=== PATIENT | female | born 2000 | race Two or more races ===

== ENCOUNTER 2023-12-26 10:16 | Day surgery (SDC) | payer MEDICAID ==
[2023-12-24 10:50] LABS: Basophils # (auto) 0.1 10 ^3/uL (0-0.2); Eosinophils # (auto) 0.3 10 ^3/uL (0-0.8); Hemoglobin 10.6 g/dL (12.2-16.2); Mean Corpuscular Hgb Conc. 31.1 g/dL (32.0-36.0); Monocytes # (auto) 0.6 10 ^3/uL (0-1.3); Red Cell Distribution Width 16.6 % (11.8-14.3)
[2023-12-24 10:53] LABS: Basophils % (auto) 0.7 % (0.0-2.0); Eosinophils % (auto) 3.6 % (0.0-7.0); Hematocrit 34.1 % (36.0-46.0); Lymphocytes # (auto) 2.7 10 ^3/uL (0.4-5.4); Lymphocytes % (auto) 29.5 % (10.0-50.0); Mean Corpuscular Hemoglobin 23.6 pg (28.0-32.0); Mean Corpuscular Volume 75.9 fL (80.0-100.0); Neutrophils # (auto) 5.3 10 ^3/uL (1.6-8.6); Neutrophils % (auto) 59.2 % (37.0-80.0); Nucleated Red Blood Cells % 0.1 %; Red Blood Cells 4.49 10^6/uL (4.0-5.20)
[2023-12-24 11:04] LABS: Urine Bacteria NONE SEEN /hpf (None Seen); Urine Blood Negative /uL (Negative); Urine Clarity Clear (Clear); Urine Color Colorless (Yellow); Urine Protein, UAD Negative (Negative); Urine Specific Gravity 1.005 (1.001-1.035); Urine Urobilinogen Normal (Negative); Urine WBC 2 /hpf (0 - 5)
[2023-12-24 11:06] LABS: INR 1.05 (0.9-1.15); Partial Thromboplastin Time 27.6 SEC (24.5-34.5)
[2023-12-24 11:35] LABS: Alanine Aminotransferase 12 U/L (7-40); Alkaline Phosphatase 85 U/L (46-116); Anion Gap 4 (5-15); BUN/Creatinine Ratio 10.3 (10.0-20.0); Blood Urea Nitrogen 6 mg/dL (9-23); Calcium 9.2 mg/dL (8.5-10.1); Carbon Dioxide 26 mmol/L (20-30); Chloride 107 mmol/L (98-107); Glucose 86 mg/dL (74-106); Potassium 3.7 mmol/L (3.5-5.1); Sodium 137 mmol/L (136-145)
[2023-12-24 11:36] LABS: Albumin 4.3 g/dL (3.2-4.8); Aspartate Aminotransferase 11 U/L (13-40); Bilirubin, Total 0.5 mg/dL (0.2-1.0)
[~2023-12-26] VITALS: Ht 167.6 cm; Wt 128.8 kg
[2023-12-26] MEDS ORDERED: LIDOCAINE VISCOUS 2% 15ML UD ONE (10:34)
[2023-12-26] MEDS ORDERED: ONDANSETRON HCL 4 MG/2 ML VIAL ONE (10:47)
[2023-12-26] MEDS ORDERED: SODIUM CHLORIDE LOCK 10 ML ONE (10:47)
[2023-12-26] MEDS ORDERED: fentaNYL CITRATE 100 MCG/2 ML VL ONE (10:47)
[2023-12-26] MEDS ORDERED: DexAMETHasone SOD PHOS 10MG/1ML VIAL INJ ONE (10:47)
[2023-12-26] MEDS ORDERED: PROPOFOL 10 MG/ML 20 ML IV ONE (10:47)
[2023-12-26] MEDS ORDERED: MIDAZOLAM HCL 2MG/2ML 2ml VIAL (1mg/ml) ONE (10:47)
[2023-12-26 11:13] VITALS: PULSE 96; RESP 22; TEMP 98; O2SAT 5
[2023-12-26 11:40] VITALS: BP 109/60; PULSE 79; RESP 22; O2SAT 98
== END 2023-12-26 12:00 | disposition home or self-care (01) ==
LOC: GI 10:16
PROVIDERS: ATTEND Internal Medicine Gastroenterology
DX: K92.89 Other specified diseases of the digestive system (principal); K29.80 Duodenitis without bleeding; E66.01 Morbid (severe) obesity due to excess calories; Z79.899 Other long term (current) drug therapy; Z98.890 Other specified postprocedural states; Z68.42 Body mass index [BMI] 45.0-49.9, adult
CPT/HCPCS: 36415; 43235; 80053; 81001; 84702; 85025; 85610; 85730; J1100; J2250; J2405; J2704; J3010; J7030